=== PATIENT | male | born 1970 | race Caucasian/White ===

== ENCOUNTER 2017-02-10 06:23 | Emergency (ER) | payer OTHER ==
[~2017-02-10] VITALS: Ht 177.8 cm; Wt 90.0 kg
[~2017-02-10 06:23] MED LIST: VITA400C28 PO
[2017-02-10 06:28] VITALS: BP 137/84; PULSE 75; RESP 16; TEMP 98.1; O2SAT 98
[2017-02-10] MEDS ORDERED: MULT1TAB84 PO (06:40)
[2017-02-10] MEDS ORDERED: SODIUM CHLOR 0.9% 1000 ML INJ 1,000 ML IV SCH (07:09)
--- NOTE | 2017-02-10 07:12 | PD ---
HPI Chief Complaint: Abdominal Pain Time Seen by Provider: 07:02 Travel History International Travel<30 days: No Contact w/Intl Traveler<30days: No Traveled to known affect area: No History of Present Illness HPI 46-year-old male with history of gastric sleeve [address] Scott, here for evaluation of lower abdominal pain. The patient has had this pain for the last 2 days. Pain is sharp, intermittent, moderate, worse with movement and palpation. Patient felt as though he may been constipated and took milk of magnesia and had only a couple small bowel movements yesterday. No vomiting. No urinary symptoms. No melena or hematochezia. PFSH Past Medical History Arthritis: Yes Cancer: No Cardiovascular Problems: Yes Endocrine: No Gastrointestinal Disorders: Yes (ACID REFLUX) Genitourinary: No Hepatitis: No Hiatal Hernia: No Hypertension: Yes Immune Disorder: No Implanted Vascular Access Dvce: Yes Musculoskeletal: Yes (RHEUMATOID ARTHRITIS, HX OF LOWER BACK SX) Neurologic: Yes Psychiatric: No Reproductive: No Respiratory: No Thyroid Disease: No Tetanus Vaccination: Unknown Influenza Vaccination: Yes Past Surgical History Abdominal Surgery: Yes (LAP CHOLECYSTECTOMY 2009, VERTICAL SLEEVE March) AICD: No Body Medical Devices: LOWER BACK INSTRUMENTATION/FUSION Joint Replacement: No Oral Surgery: Yes (TONSILLECTOMY) Pacemaker: No Other Surgery: Yes Social History Alcohol Use: Yes (socially) Tobacco Use: No Substance Use: No Allergies-Medications (Allergen,Severity, Reaction): Coded Allergies: No Known Allergies (Unverified , 02/10/17) Reported Meds & Prescriptions Reported Meds & Active Scripts Active Reported Multivitamin Adults (Multiple Vitamins W/ Minerals) 1 Tab 1 Tab PO DAILY Review of Systems Except as stated in HPI: all other systems reviewed are Neg Physical Exam Narrative GENERAL: Well-developed, well-nourished, comfortable, no acute distress. SKIN: Warm and dry. HEAD: Atraumatic. Normocephalic. EYES: Pupils equal and round. No scleral icterus. No injection or drainage. ENT: Mucous membranes pink and moist. CARDIOVASCULAR: Regular rate and rhythm. RESPIRATORY: No accessory muscle use. Clear to auscultation. Breath sounds equal bilaterally. GASTROINTESTINAL: Abdomen soft, nondistended. Mild left lower quadrant tenderness without peritoneal signs. Mild suprapubic and right lower quadrant tenderness as well without peritoneal signs. Rest of abdomen is soft and nontender. Normal bowel sounds. No hernias. MUSCULOSKELETAL: No obvious deformities. No clubbing. No cyanosis. No edema. NEUROLOGICAL: Awake and alert. No obvious cranial nerve deficits. Motor grossly within normal limits. Normal speech. PSYCHIATRIC: Appropriate mood and affect; insight and judgment normal. Data Data Last Documented VS Vital Signs Date Time Temp Pulse Resp B/P Pulse Ox O2 Delivery O2 Flow Rate FiO2 02/10/17 07:15 97.8 81 16 140/78 100 Room Air Orders Complete Blood Count With Diff (02/10/17 07:09) Comprehensive Metabolic Panel (02/10/17 07:09) Lipase (02/10/17 07:09) Lactic Acid (02/10/17 07:09) Prothrombin Time / Inr (Pt) (02/10/17 07:09) Act Partial Throm Time (Ptt) (02/10/17 07:09) Urinalysis - C+S If Indicated (02/10/17 07:09) Ct Abd/Pel W Iv Contrast(Rout) (02/10/17 07:09) Iv Access Insert/Monitor (02/10/17 07:09) Ecg Monitoring (02/10/17 07:09) Oximetry (02/10/17 07:09) Sodium Chlor 0.9% 1000 Ml Inj (Ns 1000 M (02/10/17 07:09) Sodium Chloride 0.9% Flush (Ns Flush) (02/10/17 07:15) Diatrizoate Liq (Md Poole Liq) (02/10/17 07:24) Oral Contrast - Adult (02/10/17 07:30) Iohexol 350 Inj (Omnipaque 350 Inj) (02/10/17 08:35) Ciprofloxacin (Cipro) (02/10/17 09:15) Metronidazole (Flagyl) (02/10/17 09:15) Labs Laboratory Tests Test 02/10/17 02/10/17 02/10/17 07:18 07:25 08:00 White Blood Count 8.2 TH/MM3 Red Blood Count 4.19 MIL/MM3 Hemoglobin 13.9 GM/DL Hematocrit 39.4 % Mean Corpuscular Volume 94.1 FL Mean Corpuscular Hemoglobin 33.3 PG Mean Corpuscular Hemoglobin 35.4 % Concent Red Cell Distribution Width 11.9 % Platelet Count 138 TH/MM3 Mean Platelet Volume 10.2 FL Neutrophils (%) (Auto) 70.3 % Lymphocytes (%) (Auto) 19.7 % Monocytes (%) (Auto) 9.2 % Eosinophils (%) (Auto) 0.4 % Basophils (%) (Auto) 0.4 % Neutrophils # (Auto) 5.8 TH/MM3 Lymphocytes # (Auto) 1.6 TH/MM3 Monocytes # (Auto) 0.8 TH/MM3 Eosinophils # (Auto) 0.0 TH/MM3 Basophils # (Auto) 0.0 TH/MM3 CBC Comment DIFF FINAL Differential Comment Prothrombin Time 10.5 SEC Prothromb Time International 1.0 RATIO Ratio Activated Partial 29.0 SEC Thromboplast Time Sodium Level 139 MEQ/L Potassium Level 4.2 MEQ/L Chloride Level 104 MEQ/L Carbon Dioxide Level 28.1 MEQ/L Anion Gap 7 MEQ/L Blood Urea Nitrogen 8 MG/DL Creatinine 0.80 MG/DL Estimat Glomerular Filtration 105 ML/MIN Rate Random Glucose 103 MG/DL Calcium Level 9.6 MG/DL Total Bilirubin 1.1 MG/DL Aspartate Amino Transf 12 U/L (AST/SGOT) Alanine Aminotransferase 24 U/L (ALT/SGPT) Alkaline Phosphatase 63 U/L Total Protein 8.0 GM/DL Albumin 4.2 GM/DL Lipase 127 U/L Lactic Acid Level 0.8 mmol/L Urine Color YELLOW Urine Turbidity CLEAR Urine pH 8.0 Urine Specific Kirby 1.007 Urine Protein NEG mg/dL Urine Glucose (UA) NEG mg/dL Urine Ketones NEG mg/dL Urine Occult Blood NEG Urine Nitrite NEG Urine Bilirubin NEG Urine Urobilinogen LESS THAN 2.0 MG/DL Urine Leukocyte Esterase NEG Urine RBC LESS THAN 1 /hpf Urine WBC LESS THAN 1 /hpf Urine Bacteria RARE /hpf Microscopic Urinalysis Comment CULT NOT INDICATED MDM Medical Decision Making Medical Screen Exam Complete: Yes Emergency Medical Condition: Yes Differential Diagnosis Diverticulitis, colitis, appendicitis, cystitis, UTI, nephrolithiasis, Narrative Course Vital signs are within normal limits. CBC shows WBCs 8.2, hemoglobin 13.9, hematocrit 39.4, platelets 138. CMP is unremarkable. Lactic acid is 0.8. UA is not suggestive of UTI. CT abdomen pelvis: Sigmoid diverticulitis. Patient was made aware of all findings. He is resting comfortably. He will be started on Cipro and Flagyl. He is stable for treatment as an outpatient. PMD follow-up this week. I also advised the patient to follow-up with a data software engineer for colonoscopy in the next couple of months. He reports that his last colonoscopy was about 5 years ago and was unremarkable. He was informed on when to return to the emergency department. He verbalizes understanding and agreement with plan. Diagnosis Primary Impression: Sigmoid diverticulitis Referrals: Primary Care Physician 3 days Additional Instructions: Follow-up with your primary care physician this week. Follow-up with a data software engineer. Take antibiotics as prescribed. Return to the emergency department for worsening symptoms or any other concerns. Scripts Oxycodone-Acetaminophen (Percocet)5-325 mg Tab1 Tab PO Q6H PRN (PAIN) #15 TAB Ref 0 Prov:Zenon Orozco MD 02/10/17 Metronidazole (Flagyl)500 Mg [id number] Mg PO BID 10 Days Ref 0 Prov:Zenon Orozco MD 02/10/17 Ciprofloxacin (Cipro)500 Mg [id number] Mg PO BID 10 Days Ref 0 Prov:Zenon Orozco MD 02/10/17 Disposition: 01 DISCHARGE HOME Condition: Stable Zenon Orozco MD Feb 10, 2017 07:12
[2017-02-10 07:15] VITALS: BP 140/78; PULSE 81; RESP 16; TEMP 97.8; O2SAT 100
[2017-02-10] MEDS ORDERED: SODIUM CHLORIDE 0.9% FLUSH 10 ML FLUSH IV FLUSH PRN (07:15)
[2017-02-10] MEDS ORDERED: DIATRIZOATE MEGLUM/DIATRIZOATE SOD 9 ML CUP ONE (07:24)
[2017-02-10 07:48] LABS: AUTOMATED NEUTROPHIL # 5.8 TH/MM3 (1.8-7.7); BASOPHIL % 0.4 % (0.0-2.0); EOSINOPHIL % 0.4 % (0.0-4.0); HEMATOCRIT 39.4 % (39.0-51.0); HEMO FLAGS DIFF FINAL; LYMPH % 19.7 % (9.0-44.0); LYMPHOCYTE # 1.6 TH/MM3 (1.0-4.8); MEAN CELL VOLUME 94.1 FL (80.0-100.0); MEAN CORPUSCULAR HEMOGLOBIN 33.3 PG (27.0-34.0); MEAN CORPUSCULAR HGB CONC 35.4 % (32.0-36.0); MONO % 9.2 % (0.0-8.0); NEUT % 70.3 % (16.0-70.0); PLATELET COUNT 138 TH/MM3 (150-450); RED BLOOD COUNT 4.19 MIL/MM3 (4.50-5.90); RED CELL DISTRIBUTION WIDTH 11.9 % (11.6-17.2); WHITE BLOOD COUNT 8.2 TH/MM3 (4.0-11.0)
[2017-02-10 07:58] LABS: PROTHROMBIN TIME - PATIENT 10.5 SEC (9.8-11.6)
[2017-02-10 08:07] LABS: ALT (GPT) 24 U/L (12-78); ANION GAP 7 MEQ/L (5-15); AST (GOT) 12 U/L (15-37); BICARBONATE 28.1 MEQ/L (21.0-32.0); BLOOD UREA NITROGEN 8 MG/DL (7-18); CHLORIDE 104 MEQ/L (98-107); GLOMERULAR FILTRATION RATE 105 ML/MIN (>89); POTASSIUM 4.2 MEQ/L (3.5-5.1); SODIUM (NA) 139 MEQ/L (136-145)
[2017-02-10 08:09] LABS: ALKALINE PHOSPHATASE 63 U/L (45-117); TOTAL BILIRUBIN ADULT 1.1 MG/DL (0.2-1.0)
[2017-02-10] MEDS ORDERED: IOHEXOL 350 MG/ML 10 ML VIAL (for RAD DIAG) IV ONE (08:35)
[2017-02-10 08:39] LABS: BACTERIA, URINE RARE /hpf; BLOOD, URINE NEG (NEG); GLUCOSE,URINE NEG (NEG); KETONE, URINE NEG (NEG); NITRITE,URINE NEG (NEG); URINE COLOR YELLOW (YELLW/STRAW)
[2017-02-10 08:40] LABS: COMMENT (UR) CULT NOT INDICATED; CULTURE IF INDICATED CULT NOT INDICATED
--- NOTE | 2017-02-10 08:57 | RADRPT ---
EXAM DATE/TIME: 02/10/2017 08:24 [facility] COMPARISON: No previous studies available for comparison. INDICATIONS : Lower left abdomen pain. IV CONTRAST: 95 cc Omnipaque 350 (iohexol) IV ORAL CONTRAST: No oral contrast ingested. RADIATION DOSE: 9.29 CTDIvol (mGy) MEDICAL HISTORY : Hypertension. SURGICAL HISTORY : Cholecystectomy. Fusion, lumbar.gastric sleeve ENCOUNTER: Initial ACUITY: 2 days PAIN SCALE: 4/10 LOCATION: Left lower abdomen TECHNIQUE: Volumetric scanning of the abdomen and pelvis was performed. Using automated exposure control and ad justment of the mA and/or kV according to patient size, radiation dose was kept as low as reasonably achievable to obtain optimal diagnostic quality images. FINDINGS: LOWER LUNGS: The visualized lower lungs are clear. LIVER: Homogeneous density without lesion. There is no dilation of the biliary tree. Gallbladder surgically absent.. SPLEEN: Normal size without lesion. PANCREAS: Within normal limits. KIDNEYS: Normal in size and shape. There is no mass, stone or hydronephrosis. ADRENAL GLANDS: Within normal limits. VASCULAR: There is no aortic aneurysm. BOWEL/MESENTERY: Previous gastric surgery. Hazy induration adjacent to the sigmoid colon where some diverticula are pr esent. The person be consistent with uncomplicated diverticulitis. No evidence of obstruction or perf oration. ABDOMINAL WALL: Within normal limits. RETROPERITONEUM: There is no lymphadenopathy. BLADDER: No wall thickening or mass. REPRODUCTIVE: Within normal limits. INGUINAL: There is no lymphadenopathy or hernia. MUSCULOSKELETAL: Previous lumbar sacral hardware fusion CONCLUSION: Sigmoid diverticulitis. Pedro Xiong MD on February 10, 2017 at 8:52 Board Certified Radiologist. This report was verified electronically.
[2017-02-10] MEDS ORDERED: CIPR-9 PO (09:10)
[2017-02-10] MEDS ORDERED: PERC5TAB12 PO (09:10)
[2017-02-10] MEDS ORDERED: METR-1 PO (09:10)
[2017-02-10] MEDS ORDERED: metroNIDAZOLE 500 MG TAB PO ONE (09:15)
[2017-02-10] MEDS ORDERED: CIPROFLOXACIN 500 MG TAB PO ONE (09:15)
[2017-02-10 09:32] VITALS: BP 130/77; TEMP 97.8
== END 2017-02-10 09:32 | disposition home or self-care (01) ==
LOC: NEPC 06:23
DX: K57.32 Diverticulitis of large intestine without perforation or abscess without bleeding (principal); I10 Essential (primary) hypertension; Z87.39 Personal history of other diseases of the musculoskeletal system and connective tissue; Z86.79 Personal history of other diseases of the circulatory system; Z87.19 Personal history of other diseases of the digestive system; Z86.69 Personal history of other diseases of the nervous system and sense organs
CPT/HCPCS: 74177; 80053; 81001; 83605; 83690; 85025; 85610; 85730; 96360; 99284; J7030; Q9963; Q9967